=== PATIENT | female | born 1975 | race Two or more races ===

== ENCOUNTER 2017-12-17 13:20 | Emergency (ER) | payer MEDICAID ==
[2016-10-27 17:35] VITALS: Wt 72.6 kg
[~2017-12-17 13:20] MED LIST: MULT-859 PO; SULF-198 PO; TRAZ150T8 PO
[2017-12-17] MEDS ORDERED: THIAMINE HCL(*) 200 MG/2 ML IN 100 MG, FOLIC ACID(*) 50 MG/10 ML INJ 1 MG, MULTIVITAMIN... IV ONE (13:39)
[2017-12-17] MEDS ORDERED: PANTOPRAZOLE SOD(*)40 MG VIAL 80 MG in NS(*) 0.9% 100 ML BAG 100 ML IVPB ONE (13:40)
[2017-12-17] MEDS ORDERED: DIAZEPAM 10 MG TAB PO ONE (13:40)
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
[2017-12-17] MEDS ORDERED: ONDANSETRON 4 MG/2 ML VIAL IVP ONE (13:45)
[2017-12-17 13:51] LABS: PLATELET COUNT, AUTOMATED 345 K/uL (150-450)
[2017-12-17 14:30] VITALS: BP 89/64
[2017-12-17] MEDS ORDERED: TRIMETH/SULFA DS 160-800MG TAB PO ONE (15:30)
== END 2017-12-17 15:54 ==
LOC: ER 13:21
DX: F10.229 Alcohol dependence with intoxication, unspecified (principal); Y90.8 Blood alcohol level of 240 mg/100 ml or more; K29.20 Alcoholic gastritis without bleeding; N30.00 Acute cystitis without hematuria
CPT/HCPCS: 80305; 81001; 81025; 83735; 84443; 85025; 87077; 87088; 87186; 99285; C9113; G0480; J2405; J3411; J3475; J7030; J7050; 80320; 80329; 82040; 82247; 82310; 82374; 82435; 82565; 82947; 84075; 84132; 84155; 84295; 84450; 84460; 84520; 96365; 96375

== ENCOUNTER 2017-12-17 15:33 | Inpatient (IN) | payer MEDICAID ==
[2016-10-27 17:35] VITALS: Ht 152.4 cm; Wt 73.9 kg
[~2017-12-17] VITALS: Ht 152.4 cm; Wt 73.9 kg
[2017-12-17 00:16] VITALS: BP 122/81
[2017-12-17 16:00] VITALS: BP 104/78
[2017-12-17] MEDS ORDERED: MAG HYD/AL HYD/SIMETH 30ML UDC PO PRN (16:10)
[2017-12-17] MEDS: DIAZEPAM 10 MG TAB PO PRN ×5 (16:55→20:33)
[2017-12-17] MEDS: ONDANSETRON 4 MG ODT TABDP SL PRN (19:41)
[2017-12-17 20:35] VITALS: BP 121/78
[2017-12-17] MEDS: TRIMETH/SULFA DS 160-800MG TAB PO SCH (21:00)
[2017-12-18 00:16] VITALS: BP 122/81
[2017-12-18] MEDS: DIAZEPAM 10 MG TAB PO PRN ×6 (00:30→17:34)
[2017-12-18 08:27] VITALS: BP 114/76
[2017-12-18] MEDS: ONDANSETRON 4 MG ODT TABDP SL PRN ×2 (09:05→17:34)
[2017-12-18] MEDS: MULTIVITAMINS TAB PO SCH (09:05)
[2017-12-18] MEDS: THIAMINE HCL 100 MG TAB PO SCH (09:05)
[2017-12-18] MEDS: FOLIC ACID 1 MG TAB PO SCH (09:05)
[2017-12-18] MEDS: PANTOPRAZOLE SOD 20 MG TABEC PO SCH (09:05)
[2017-12-18] MEDS: TRIMETH/SULFA DS 160-800MG TAB PO SCH ×2 (09:05→20:30)
[2017-12-18 12:28] VITALS: BP 118/62
[2017-12-18 18:19] VITALS: BP 104/62
[2017-12-18 20:06] VITALS: BP 130/88
[2017-12-18 21:26] VITALS: BP 119/76
[2017-12-19 05:57] VITALS: BP 109/89
[2017-12-19] MEDS: ONDANSETRON 4 MG ODT TABDP SL PRN (06:00)
[2017-12-19 06:37] LABS: PLATELET COUNT, AUTOMATED 223 K/uL (150-450)
[2017-12-19] MEDS: TRIMETH/SULFA DS 160-800MG TAB PO SCH ×2 (08:34→22:11)
[2017-12-19] MEDS: FOLIC ACID 1 MG TAB PO SCH (08:34)
[2017-12-19] MEDS: THIAMINE HCL 100 MG TAB PO SCH (08:35)
[2017-12-19] MEDS: MULTIVITAMINS TAB PO SCH (08:35)
[2017-12-19] MEDS: PANTOPRAZOLE SOD 20 MG TABEC PO SCH (08:35)
[2017-12-19 13:46] VITALS: BP_SYST 108; BP_SYST 126; BP_DIAS 56; BP_DIAS 68
--- NOTE | 2017-12-19 15:06 | BHS Progress Note ---
S - Subjective Progress Notes Subjective "Most likely I will have to leave tomorrow to take care of my son. I was feeling like crap from the withdrawal but I'm better now." Patient able to sit upright today, ambulate and shower. Able to carry on conversation with this provider, less nausea, tremor improving Use of walker for ambulation assist, fall precautions and seizure precautions in place, per record review history of withdrawal seizures Mood "okay" Denies depression, minimal anxiety, sleep and appetite improving, denies auditory/visual hallucinations. No symptoms of jade or psychosis Discuss outpatient substance abuse treatment followup, agreeable CIWA scores less than 15, continue CIWA protocol for etoh withdrawal Suicidal Ideation: None Homicidal Ideation: None [facility] - Objective Physical Exam Vital Signs Vital Signs Date Time Temp Pulse Resp B/P (MAP) Pulse Ox O2 Delivery O2 Flow Rate FiO2 12/19/17 13:46 98.1 96 16 108/68 (81) 97 Room Air Muscle Strength and Tone: WNL, Other (improving) Gait and Station: Unsteady (dizziness at times, use of walker to assist ambulation, fall and seizure precautions in place) Mental Status Exam General Appearance: Casual, Well Groomed, Good Eye Contact, Cooperative, Polite , Good Interaction Speech: Clear, Spontaneous, Normal Rate, Normal Rhythm, Normal Volume, Normal Tone Mood: No Dysthmic/Depressed, Euthymic Affect: Full and Appropriate, Calm, No Sad, No Tearful, No Anxious Thought Process: Organized, Logical, Goal Directed, No Loose Associations, No Flight of Ideas Thought Content: No Suicidal Ideation, No Homicidal Ideation, No Delusions, No Auditory Halllucinations, No Visual Hallucinations, No Thought Broadcasting, No Ideas of Reference, No Obsessions, No Compulsions Sensorium: Clear Cognition: Alert & Oriented-Person, Alert & Oriented-Place, Alert & Oriented- Time, [id number] Memory: Immediate, Recent, Remote Intelligence: Average Insight Judgment: Fair Result Diagram: 12/19/17 0625 12/19/17 0625 Lab Laboratory Tests Test 12/19/17 06:25 White Blood Count 8.2 k/uL Red Blood Count 4.16 M/uL Hemoglobin 13.2 g/dL Hematocrit 38.8 % Mean Corpuscular Volume 93.2 fL Mean Corpuscular Hemoglobin 31.6 pg Mean Corpuscular Hemoglobin Concent 33.9 g/dL Red Cell Distribution Width 15.9 % Platelet Count 223 K/uL Mean Platelet Volume 8.5 fL Neutrophils (%) (Auto) 71.7 % Lymphocytes (%) (Auto) 20.2 % Monocytes (%) (Auto) 6.0 % Eosinophils (%) (Auto) 1.4 % Basophils (%) (Auto) 0.7 % Nucleated RBC Relative Count (auto) 0.0 /100WBC Neutrophils # (Auto) 5.9 K/uL Lymphocytes # (Auto) 1.7 K/uL Monocytes # (Auto) 0.5 K/uL Eosinophils # (Auto) 0.1 K/uL Basophils # (Auto) 0.1 K/uL Nucleated RBC Absolute Count (auto) 0.00 K/uL Sodium Level 132 mmol/L Potassium Level 3.7 mmol/L Chloride Level 101 mmol/L Carbon Dioxide Level 19 mmol/L Blood Urea Nitrogen 5 mg/dl Creatinine 0.60 mg/dl Glomerular Filtration Rate Calc > 60.0 Random Glucose 101 mg/dl Calcium Level 7.9 mg/dl Total Bilirubin 0.5 mg/dl Aspartate Amino Transf (AST/SGOT) 40 U/L Alanine Aminotransferase (ALT/SGPT) 51 U/L Alkaline Phosphatase 75 U/L Total Protein 6.8 gm/dl Albumin 3.3 g/dl Current Medications Medications (Trade) Dose Ordered Sig/Keisha Route PRN Reason Start Time Stop Time Status Last Admin Dose Admin Al Hydrox/Mg Hydrox/Simethicone (Maalox(*) 30 ml Udcup (Or Equiv)) 30 ml Q4H PRN PO DYSPEPSIA 12/17/17 16:10 01/16/18 16:09 Multivitamins (Thera-M Enhanced Tab (Or Equiv)) 1 each QDAY PO 12/18/17 09:00 01/17/18 08:59 12/19/17 08:35 Thiamine HCl (Vitamin B-1(*) 100 Mg Tab (Or Equiv)) 100 mg QDAY PO 12/18/17 09:00 01/17/18 08:59 12/19/17 08:35 Folic Acid (Folic Acid (*) 1 Mg Tab) 1 mg QDAY PO 12/18/17 09:00 01/17/18 08:59 12/19/17 08:34 Pantoprazole Sodium (Protonix (Or Equiv)) 40 mg QDAY PO 12/18/17 09:00 01/17/18 08:59 12/19/17 08:35 Trimethoprim/ Sulfamethoxazole (Bactrim(*) Ds 160/800 Mg Tab (Or Equiv)) 1 each BID PO 12/17/17 21:00 12/31/17 20:59 12/19/17 08:34 Diazepam (Valium(*) 10 Mg Tab (Or Equiv)) 20 mg Q1H PRN PO FOLLOW CIWA PROTOCOL 12/17/17 16:40 12/31/17 16:39 12/18/17 17:34 Ondansetron HCl (Zofran(*) 4 Mg Odt(Or Equiv)) 4 mg Q6H PRN SL NAUSEA/VOMITING 12/17/17 19:20 01/16/18 19:19 12/19/17 06:00 Allergies Coded Allergies No Known Drug Allergies (Unverified12/17/17) S Assessment and Plan [id number] Encounter Date: Dec 19, 2017 [id number] Encounter Time: 12:11 BHS Plan: Admit to Unit, Necessary Precautions, Individual/Group Therapy, Admin /Titrate Meds, Educate Patient Tobacco Medications: Not Appropriate Condition Multpiple Antipsychotics Used: No Problems: (1) Alcohol use disorder, severe, in controlled environment Status: Chronic (2) Alcohol withdrawal Status: Acute Condition Review outpatient substance abuse treatment options Continue CIWA protocol Fall and seizure precautions Continued individual & group therapy LUCILA BELLO NP Dec 19, 2017 15:05
[2017-12-19 21:53] VITALS: BP 102/66
[2017-12-19] MEDS ORDERED: traZODone HCL 50 MG TAB PO PRN (22:05)
[2017-12-19] MEDS ORDERED: IBUPROFEN 600 MG TAB PO PRN (22:05)
[2017-12-20 04:06] VITALS: BP 107/81
[2017-12-20 07:13] VITALS: BP 121/76
[2017-12-20] MEDS: PANTOPRAZOLE SOD 20 MG TABEC PO SCH (08:18)
[2017-12-20] MEDS: MULTIVITAMINS TAB PO SCH (08:18)
[2017-12-20] MEDS: FOLIC ACID 1 MG TAB PO SCH (08:18)
[2017-12-20] MEDS: TRIMETH/SULFA DS 160-800MG TAB PO SCH (08:18)
[2017-12-20] MEDS: THIAMINE HCL 100 MG TAB PO SCH (08:18)
[2017-12-20] MEDS ORDERED: SULF-198 PO (09:15)
[2017-12-20] MEDS ORDERED: PANT40TA65 PO (09:15)
[2017-12-20] MEDS ORDERED: MULT-1335 PO (09:16)
[2017-12-20] MEDS ORDERED: TRAZ150T8 PO (09:17)
[2017-12-20] MEDS ORDERED: IBUP600T22 PO (09:18)
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
== END 2017-12-20 10:48 | disposition home or self-care (01) | DRG 897 ==
LOC: BHS 15:33
PROVIDERS: ADMIT Nurse Practitioner Psychiatric/Mental Health; ATTEND Nurse Practitioner Psychiatric/Mental Health
DX: F10.230 Alcohol dependence with withdrawal, uncomplicated (principal); N39.0 Urinary tract infection, site not specified; F15.21 Other stimulant dependence, in remission; R63.0 Anorexia; B96.20 Unspecified Escherichia coli [E. coli] as the cause of diseases classified elsewhere; Y90.8 Blood alcohol level of 240 mg/100 ml or more; Z81.3 Family history of other psychoactive substance abuse and dependence; Z59.8 Other problems related to housing and economic circumstances; Z73.3 Stress, not elsewhere classified
CPT/HCPCS: 36415; 80305; 80320; 80329; 81001; 81025; 82040; 82247; 82310; 82374; 82435; 82565; 82947; 83735; 84075; 84132; 84155; 84295; 84443; 84450; 84460; 84520; 85025; 87077; 87088; 87186; 96365; 96375; 99285; C9113; J2405; J3411; J3475; J7030; J7050; S0119